=== PATIENT | female | born 1980 | race Caucasian/White ===

== ENCOUNTER 2022-10-27 11:14 | Emergency (ER) | payer OTHER ==
[~2022-10-27] VITALS: Ht 162.6 cm; Wt 77.1 kg
--- NOTE | 2022-10-27 11:27 | NUR ---
Patient to ER bed 08 to gown for evaluation. Side rails up.
[2022-10-27 11:28] VITALS: BP_SYST 134
--- NOTE | 2022-10-27 11:32 | NUR ---
PT INSTRUCTED BY ON-CALL OB MD TO COME TO ED S/P "MISCARRIAGE". STATES ONSET 10/23/22. STATES INTERMITTENT CRAMPING W/ VAG BLEEDING. 1- OB PAD Q2 HOURS. COMFORT MEASURES AND SUPPORTIVE CARE INITIATED. A1
--- NOTE | 2022-10-27 11:50 | NUR ---
ER DR. PITTMAN EXAMINING PT
[2022-10-27 12:10] LABS: BILIRUBIN,URINE NEGATIVE (NEGATIVE); BLOOD, URINE 3+ (NEGATIVE); CLARITY/URINE CLEAR (CLEAR); GLUCOSE,URINE NEGATIVE (NEGATIVE); KETONES,URINE NEGATIVE (NEGATIVE); LEUKOCYTE ESTERASE ,URINE TRACE (NEGATIVE); NITRITE, URINE NEGATIVE (NEGATIVE); PROTEIN URINE NEGATIVE (NEGATIVE); UROBILINOGEN,URINE 0.2 (0.2-1.0)
[2022-10-27 12:13] LABS: BASOPHILS % (AUTO) 0.7 % (0.0-2.0); EOSINOPHILS # (AUTO) 0.1 K/uL (0.0-0.4); EOSINOPHILS % (AUTO) 2.1 % (0.0-4.0); HEMOGLOBIN 13.4 g/dL (12.0-16.0); LYMPHOCYTES # (AUTO) 1.8 K/uL (1.0-5.5); LYMPHOCYTES % (AUTO) 26.8 % (20.5-51.5); MEAN CORPUSCULAR HEMOGLOBIN 29 pg (27-31); MEAN CORPUSCULAR HGB CONC 34 % (32-36); MEAN CORPUSCULAR VOLUME 86 fL (79.0-98.0); MONOCYTES # (AUTO) 0.5 K/uL (0.0-1.0); MONOCYTES % (AUTO) 7.1 % (1.7-9.3); NEUTROPHILS # (AUTO) 4.3 K/uL (1.8-7.7); NEUTROPHILS % (AUTO) 63.3 % (40.0-70.0); PLATELET COUNT (AUTO) 272 K/uL (130-430); RED BLOOD CELL COUNT(AUTO) 4.64 MIL/uL (4.2-6.2); RED CELL DISTRIBUTION WIDTH 13.2 % (9.0-15.0); WHITE BLOOD COUNT (AUTO) 6.8 K/uL (4.8-10.8)
[2022-10-27 12:14] LABS: COLOR,URINE YELLOW (YELLOW)
[2022-10-27 12:24] LABS: CALCIUM 8.3 mg/dL (8.4-11.0); CREATININE 0.79 mg/dL (0.55-1.30)
[2022-10-27 12:25] LABS: BACTERIA,URINE RARE /HPF (None Seen)
[2022-10-27 12:35] LABS: ALBUMIN 3.7 g/dL (3.4-4.8); TOTAL BILIRUBIN 0.5 mg/dL (0.0-1.0)
--- NOTE | 2022-10-27 12:43 | NUR ---
ULTRA SOUND AT .
--- NOTE | 2022-10-27 13:50 | NUR ---
PT AWAITS LAB RESULTS.
[2022-10-27 14:14] VITALS: BP_SYST 131
--- NOTE | 2022-10-27 14:15 | NUR ---
Patient given written and verbal discharge instructions and verbalizes understanding. ER MD discussed with patient the results and treatment provided. Patient in stable condition. ID arm band removed. NO Rx given. Patient educated on pain management and to follow up with PMD. Pain Scale 0/10. Opportunity for questions provided and answered. Medication side effect fact sheet provided.
== END 2022-10-27 14:14 | disposition home or self-care (01) ==
LOC: SED 11:14
DX: N92.6 Irregular menstruation, unspecified (principal); N93.9 Abnormal uterine and vaginal bleeding, unspecified; R10.30 Lower abdominal pain, unspecified; Z88.0 Allergy status to penicillin; Z79.899 Other long term (current) drug therapy
CPT/HCPCS: 36415; 76856-TC; 80053; 81000; 81025; 84702; 85025; 99284